=== PATIENT | male | born 1940 | race Hispanic/Latino ===

== ENCOUNTER 2017-06-23 10:08 | Day surgery (SDC) | payer MEDICARE, OTHER ==
[2017-06-16 14:02] VITALS: BMI 33.2
[2017-06-23] MEDS ORDERED: Propofol 10 mg/ml Inj (20 ML) ONE (12:40)
[2017-06-23] MEDS ORDERED: Sodium Chloride 0.9% 1,000 ML IV SCH (13:45)
[2017-06-23 14:33] VITALS: BP 132/72; PULSE 59; RESP 18; TEMP 98.2; O2SAT 95
== END 2017-06-23 15:55 | disposition home or self-care (01) ==
LOC: ENDO 10:08
PROVIDERS: ATTEND Internal Medicine Gastroenterology
DX: K25.9 Gastric ulcer, unspecified as acute or chronic, without hemorrhage or perforation (principal); Z12.11 Encounter for screening for malignant neoplasm of colon; K29.50 Unspecified chronic gastritis without bleeding; K29.80 Duodenitis without bleeding; K63.5 Polyp of colon; K57.30 Diverticulosis of large intestine without perforation or abscess without bleeding; K64.8 Other hemorrhoids; Z86.718 Personal history of other venous thrombosis and embolism; Z79.01 Long term (current) use of anticoagulants; Z80.0 Family history of malignant neoplasm of digestive organs
CPT/HCPCS: 43239; 45381; 45385; 88305; 88342; J2001; J2704; J3010; J7040 ×2